=== PATIENT | female | born 1990 | race Hispanic/Latino ===

== ENCOUNTER 2018-01-13 13:11 | Emergency (ER) | payer SELFPAY ==
[2018-01-13 13:54] LABS: BASOPHILS % (AUTO) 0.2 % (0.0-5.0); EOSINOPHILS % (AUTO) 3.2 % (0.0-8.0); HEMATOCRIT 40.3 % (36-48); LYMPHOCYTES % (AUTO) 20.3 % (21.0-51.0); MEAN CORPUSCULAR HEMOGLOBIN 28.7 pg (27.0-33.0); MEAN CORPUSCULAR HGB CONC 32.3 g/dL (32.0-36.0); MEAN CORPUSCULAR VOLUME 88.8 fL (79-99); MONOCYTES % (AUTO) 5.3 % (3.0-13.0); PLATELET COUNT (AUTO) 164 K/uL (130-400); RED BLOOD CELL COUNT(AUTO) 4.54 MIL/uL (4.00-5.50); RED CELL DISTRIBUTION WIDTH 14.1 % (11.0-15.5); WHITE BLOOD COUNT (AUTO) 8.2 K/uL (4.8-10.8)
[2018-01-13 13:55] LABS: APPEARANCE,URINE Clear (CLEAR); BILIRUBIN,URINE Negative (NEGATIVE); COLOR,URINE Yellow (YELLOW); GLUCOSE, URINE (UA) Negative (NEGATIVE); KETONES,URINE Negative (NEGATIVE); LEUKOCYTE ESTERASE ,URINE Trace (NEGATIVE); NITRATE,URINE Negative (NEGATIVE); OCCULT BLOOD,URINE Negative (NEGATIVE); PH,URINE 5.5 (5.0-8.0); PROTEIN,URINE Negative (NEGATIVE)
[2018-01-13 13:58] LABS: HCG,QUAL RESULT NEGATIVE (NEGATIVE)
[2018-01-13 14:01] LABS: BACTERIA,URINE Rare /HPF (None Seen); RBC,URINE 0-1 /HPF (0-1); SQUAMOUS EPITHELIAL CELL,UR Rare /HPF (0-2); WBC,URINE 0-1 /HPF (0-1)
[2018-01-13 14:04] LABS: CREATININE 0.7 mg/dL (0.5-1.5); POTASSIUM 3.2 mmol/L (3.5-5.1)
[2018-01-13 14:08] LABS: ALBUMIN 3.6 g/dL (3.5-5.0); BILIRUBIN,TOTAL 0.4 mg/dL (0.2-1.0)
[2018-01-13] MEDS ORDERED: ONDANSETRON HCL 4 MG/2 ML VIAL ONE (15:39)
== END 2018-01-13 16:04 | disposition home or self-care (01) ==
LOC: EDH 13:11
DX: K52.9 Noninfective gastroenteritis and colitis, unspecified (principal); Z72.0 Tobacco use; Z91.010 Allergy to peanuts
CPT/HCPCS: 36415; 74176; 80053; 81001; 81025; 83690; 85025; 96374; 99285; J2405

== ENCOUNTER 2018-08-09 19:04 | Emergency (ER) | payer OTHER | END 2018-08-09 19:33 | disposition home or self-care (01) | LOC: EDH 19:04 | DX: N93.9 Abnormal uterine and vaginal bleeding, unspecified (principal); Z91.010 Allergy to peanuts; Z90.49 Acquired absence of other specified parts of digestive tract; Z98.890 Other specified postprocedural states; Z87.891 Personal history of nicotine dependence | CPT/HCPCS: 99281 ==